=== PATIENT | male | born 2000 | race Caucasian/White ===

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

== ENCOUNTER 2023-01-17 13:27 | Emergency (ER) | payer OTHER ==
[2023-01-17 13:36] VITALS: BP 130/73; PULSE 88; RESP 18; TEMP 99.1; BMI 18.4
[2023-01-17] MEDS ORDERED: IBUPROFEN 600 MG TABLET (FP) PO ONE ×2 (14:46→14:55)
== END 2023-01-17 15:21 | disposition home or self-care (01) ==
LOC: JERFT 13:27 → JER 13:27
DX: S93.491A Sprain of other ligament of right ankle, initial encounter (principal); M25.571 Pain in right ankle and joints of right foot; R22.41 Localized swelling, mass and lump, right lower limb; X50.1XXA Overexertion from prolonged static or awkward postures, initial encounter; Y93.67 Activity, basketball
CPT/HCPCS: 73610-TC-RT-FY; 99283-25